=== PATIENT | female | born 1975 | race Caucasian/White ===

== ENCOUNTER 2017-05-23 20:28 | Inpatient (IN) ==
[2017-05-23] MEDS ORDERED: 0.9 % Sodium Chloride 1,000 ML IVC ONE ×2 (20:36→21:54)
[2017-05-23] MEDS ORDERED: 0.9 % Sodium Chloride 1,000 ML ONE (20:38)
[2017-05-23 22:44] LABS: Basophils % 0.2 %; Eosinophils # 0.1 K/mcL (0.0-0.6); Hematocrit 38.3 % (35.3-44.9); Hemoglobin 12.5 g/dL (11.5-15.4); Immature Granulocytes % 0.3 % (0-4); Lymphocytes # 2.1 K/mcL (0.6-4.6); Lymphocytes % 22.5 %; Mean Corpuscular HGB Conc 32.6 g/dL (31.6-35.5); Mean Corpuscular Hemoglobin 28.9 pg (28.0-33.3); Mean Corpuscular Volume 88.5 fL (83.0-100.0); Mean Platelet Volume 9.5 fL (9.4-12.4); Monocytes # 0.9 K/mcL (0.0-1.3); Monocytes % 9.5 %; Neutrophils # 6.1 K/mcL (1.6-8.9); Platelet Count 221 K/mcL (140-400); Red Blood Count 4.33 M/mcL (3.82-4.97); Red Cell Distribution Width 12.6 % (11.5-14.5); Segmented Neutrophils % 66.5 %
[2017-05-23 23:00] LABS: Alanine Aminotransferase 45 Units/L (0-55); Albumin 3.5 g/dL (3.5-5.0); Albumin/Globulin Ratio 0.9 (1.1-2.2); Alkaline Phosphatase 76 Units/L (38-126); Aspartate Amino Transferase 61 Units/L (5-34); BUN/Creatinine Ratio 9 (6-26); Bilirubin,Direct 0.3 mg/dL (0.0-0.5); Bilirubin,Indirect 0.2 mg/dL (0.0-1.2); Bilirubin,Total 0.5 mg/dL (0.2-1.2); Blood Urea Nitrogen 7 mg/dL (7-20); Carbon Dioxide 28 mEq/L (19-29); Chloride 106 mEq/L (98-109); Globulin 4.1 g/dL (2.4-3.5); Glucose 88 mg/dL (70-99); Osmolality,Calculated 287 (280-300); Potassium 3.6 mEq/L (3.5-4.5); Sodium 140 mEq/L (136-145); Total Protein 7.6 g/dL (6.0-8.3); eGFR For African Americans > 60 (> 60); eGFR For Non-African Americans > 60 (> 60)
[2017-05-23 23:00] LABS: Amphetamine Screen,Urine Negative ng/mL (Cutoff=1000); Barbiturate Screen,Urine Negative ng/mL (Cutoff=200); Benzodiazepines Screen,Urine Positive ng/mL (Cutoff=200); Cannabinoid Screen,Urine Negative ng/mL (Cutoff = 50); Cocaine Screen,Urine Positive ng/mL (Cutoff= 300); Opiate Screen,Urine Negative ng/mL (Cutoff=300); Phencyclidine Screen,Urine Negative ng/mL (Cutoff=25)
[2017-05-23 23:01] LABS: Ethanol < 10 mg/dL (0-10)
[2017-05-23 23:02] LABS: Bilirubin,Urine Negative (Negative); Blood,Urine Negative (Negative); Clarity,Urine Clear (Clear); Color,Urine Yellow (Yellow); Glucose,Urine (UA) Normal (Normal); Ketones,Urine Negative (Negative); Leukocyte Esterase,Urine Negative (Negative); Nitrite,Urine Negative (Negative); Protein,Urine Negative (Neg-Trace); Specific Gravity,Urine 1.006 (1.010-1.025); Urobilinogen,Urine Normal (Normal)
--- NOTE | 2017-05-24 01:31 | Emergency Department Note ---
Overdose - [facility] Narrative Medical decision making narrative: Patient has benzodiazepine and cocaine in her symptoms which correlate with her presentation. Not improved further after administration of further Narcan. Patient observed for multiple hours in emergency department and remained stable. Heart rate improved after IV fluids. After observation for multiple hours in the emergency Department she was able to awake slightly. She was able to give a little bit more history. She states she was drug free for about a year but recently relapsed. She states she took the drugs last night and it sounds to end her life. Patient will be admitted to the hospitalist for further care and evaluation until she can be evaluated by [facility]. - Medical Records Medical records reviewed: Yes I reviewed the patient's medical records. - Lab Data Lab results reviewed: Yes I reviewed the patient's lab results. Result diagrams: 05/23/17 22:27 05/23/17 22:27 Lab Results 05/23/17 05/23/17 05/23/17 Range/Units 22:27 22:27 22:27 WBC 9.1 (4.3-11.1) K/mcL RBC 4.33 (3.82-4.97) M/mcL Hgb 12.5 (11.5-15.4) g/dL Hct 38.3 (35.3-44.9) % MCV 88.5 (83.0-100.0) fL MCH 28.9 (28.0-33.3) pg MCHC 32.6 (31.6-35.5) g/dL RDW 12.6 (11.5-14.5) % Plt Count 221 (140-400) K/mcL MPV 9.5 (9.4-12.4) fL Immature Gran % 0.3 (0-4) % Seg Neutrophils % 66.5 % Lymphocytes % 22.5 % Monocytes % 9.5 % Eosinophils % 1.0 % Basophils % 0.2 % Neutrophils # 6.1 (1.6-8.9) K/mcL Lymphocytes # 2.1 (0.6-4.6) K/mcL Monocytes # 0.9 (0.0-1.3) K/mcL Eosinophils # 0.1 (0.0-0.6) K/mcL Basophils # 0.0 (0.0-0.2) K/mcL Sodium 140 (136-145) mEq/L Potassium 3.6 (3.5-4.5) mEq/L Chloride 106 (98-109) mEq/L Carbon Dioxide 28 (19-29) mEq/L BUN 7 (7-20) mg/dL Creatinine 0.76 (0.57-1.11) mg/dL Est GFR ( Amer) > 60 (> 60) Est GFR (Non-Af Amer) > 60 (> 60) BUN/Creatinine Ratio 9 (6-26) Glucose 88 (70-99) mg/dL Calculated Osmolality 287 (280-300) Calcium 9.0 (8.6-10.8) mg/dL Total Bilirubin 0.5 (0.2-1.2) mg/dL Direct Bilirubin 0.3 (0.0-0.5) mg/dL Indirect Bilirubin 0.2 (0.0-1.2) mg/dL AST 61 H (5-34) Units/L ALT 45 (0-55) Units/L Alkaline Phosphatase 76 (38-126) Units/L Troponin I 0.00 (0-0.03) ng/mL Serum Total Protein 7.6 (6.0-8.3) g/dL Albumin 3.5 (3.5-5.0) g/dL Globulin 4.1 H (2.4-3.5) g/dL Albumin/Globulin Ratio 0.9 L (1.1-2.2) Urine Color (Yellow) Urine Clarity (Clear) Urine pH (5.0-8.0) pH Units Ur Specific [place] (1.010-1.025) Urine Protein (Neg-Trace) mg/dL Urine Glucose (UA) (Normal) mg/dL Urine Ketones (Negative) mg/dL Urine Blood (Negative) Urine Nitrite (Negative) Urine Bilirubin (Negative) Urine Urobilinogen (Normal) mg/dL Ur Leukocyte Esterase (Negative) Ur Culture Indicated? (NO) Urine Opiates Screen (Kgffru=815) ng/mL Ur Barbiturates Screen (Jfagzj=577) ng/mL Ur Phencyclidine Scrn (Cutoff=25) ng/mL Ur Amphetamines Screen (Mhiwja=1497) ng/mL U Benzodiazepines Scrn (Nfiegw=948) ng/mL Urine Cocaine Screen (Cutoff= 300) ng/mL U Marijuana (THC) Screen (Cutoff = 50) ng/mL Ethyl Alcohol < 10 (0-10) mg/dL 05/23/17 05/23/17 Range/Units 22:45 22:45 WBC (4.3-11.1) K/mcL RBC (3.82-4.97) M/mcL Hgb (11.5-15.4) g/dL Hct (35.3-44.9) % MCV (83.0-100.0) fL MCH (28.0-33.3) pg MCHC (31.6-35.5) g/dL RDW (11.5-14.5) % Plt Count (140-400) K/mcL MPV (9.4-12.4) fL Immature Gran % (0-4) % Seg Neutrophils % % Lymphocytes % % Monocytes % % Eosinophils % % Basophils % % Neutrophils # (1.6-8.9) K/mcL Lymphocytes # (0.6-4.6) K/mcL Monocytes # (0.0-1.3) K/mcL Eosinophils # (0.0-0.6) K/mcL Basophils # (0.0-0.2) K/mcL Sodium (136-145) mEq/L Potassium (3.5-4.5) mEq/L Chloride (98-109) mEq/L Carbon Dioxide (19-29) mEq/L BUN (7-20) mg/dL Creatinine (0.57-1.11) mg/dL Est GFR ( Amer) (> 60) Est GFR (Non-Af Amer) (> 60) BUN/Creatinine Ratio (6-26) Glucose (70-99) mg/dL Calculated Osmolality (280-300) Calcium (8.6-10.8) mg/dL Total Bilirubin (0.2-1.2) mg/dL Direct Bilirubin (0.0-0.5) mg/dL Indirect Bilirubin (0.0-1.2) mg/dL AST (5-34) Units/L ALT (0-55) Units/L Alkaline Phosphatase (38-126) Units/L Troponin I (0-0.03) ng/mL Serum Total Protein (6.0-8.3) g/dL Albumin (3.5-5.0) g/dL Globulin (2.4-3.5) g/dL Albumin/Globulin Ratio (1.1-2.2) Urine Color Yellow (Yellow) Urine Clarity Clear (Clear) Urine pH 6.0 (5.0-8.0) pH Units Ur Specific [place] 1.006 L (1.010-1.025) Urine Protein Negative (Neg-Trace) mg/dL Urine Glucose (UA) Normal (Normal) mg/dL Urine Ketones Negative (Negative) mg/dL Urine Blood Negative (Negative) Urine Nitrite Negative (Negative) Urine Bilirubin Negative (Negative) Urine Urobilinogen Normal (Normal) mg/dL Ur Leukocyte Esterase Negative (Negative) Ur Culture Indicated? NO (NO) Urine Opiates Screen Negative (Yievsr=221) ng/mL Ur Barbiturates Screen Negative (Npblfs=909) ng/mL Ur Phencyclidine Scrn Negative (Cutoff=25) ng/mL Ur Amphetamines Screen Negative (Xlasas=5921) ng/mL U Benzodiazepines Scrn Positive H (Vqxdyi=773) ng/mL Urine Cocaine Screen Positive H (Cutoff= 300) ng/mL U Marijuana (THC) Screen Negative (Cutoff = 50) ng/mL Ethyl Alcohol (0-10) mg/dL - Radiology Data Radiology results reviewed: Yes I reviewed the patient's radiology results. - EKG Data EKG attestation: Yes I reviewed and interpreted this EKG. EKG results narrative: ECG - interpreted by ED physician. Rate 101 sinus tachycardia, no STEMI, [place], QT intervals, and QRS within normal limits Overdose HPI - General Chief Complaint: ED Overdose Stated Complaint: OD Time Seen by Provider: 05/23/17 20:35 Source: patient, EMS Limitations: no limitations Nursing Notes Reviewed: Yes Vital Signs Reviewed: Yes - History of Present Illness HPI Narrative: History source: Patient is unable to provide information for this note. Info was gathered from the patient, hospital staff, the patient's chart. History limitations: Patient condition Medications: As per nurses note 42-year-old female brought in by EMS for suspected overdose. They state that she was found unconscious lying on the street in [facility]. Bystanders called EMS. Patient states she used heroin today, she improved mildly after administration of Narcan. She is unable to give a full history regarding her symptoms. Patient is tachycardic in the emergency department. She is missing multiple left upper teeth however these do not look acutely fractured as they are not bleeding. - Related Data Previous Rx's Medication Instructions Recorded Ibuprofen [Motrin] 600 mg PO Q6HR PRN #40 tablet 05/20/16 Allergies Allergy/AdvReac Type Severity Reaction Status Date / Time No Known Allergies Allergy Verified 02/11/17 00:29 Limitations: ROS unobtainable due to patients medical condition Past Medical History - Past Medical History Attestation: Yes The following information was validated with the patient. 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 Bowel sounds present Neuro: Unable to perform a full neurologic evaluation however patient wakes to painful stimuli, is able to answer yes and no questions and opens eyes to painful stimuli. Patient is moving all extremities. - General Limitations: no limitations General appearance: alert, in no apparent distress Course Vital Signs Temperature 98.3 F 05/23/17 20:31 Pulse Rate 106 05/23/17 20:31 Respiratory Rate 18 05/23/17 20:31 Blood Pressure 124/91 05/23/17 20:31 O2 Sat by Pulse Oximetry 98 05/23/17 20:31 Temperature 98.4 F 05/24/17 07:10 Pulse Rate 69 05/24/17 07:10 Respiratory Rate 14 05/24/17 07:10 Blood Pressure 98/60 05/24/17 07:10 O2 Sat by Pulse Oximetry 98 05/24/17 07:10 Oxygen Delivery Oxygen Delivery Room Air Disposition Clinical Impression: Suicide attempt by multiple drug overdose Multiple drug overdose Qualifiers: Encounter type: initial encounter Injury intent: intentional self-harm Qualified Code(s): T50.902A - Poisoning by unspecified drugs, medicaments and biological substances, intentional self-harm, initial encounter Disposition: Admitted As Inpatient Condition: Fair
--- NOTE | 2017-05-24 05:26 | Internal Med History&Physical ---
Date of Encounter: 05/24/17 Time of Encounter: 05:22 Assessment and Plan (1) Suicidal ideation Current visit: Yes Status: Acute She admits to suicidal ideation. She will need evaluation by psychiatrist to determine if she would benefit from inpatient treatment. Currently her mental status does not allow psychiatric evaluation and therefore we will admit her to the medical service and monitor mental status closely. We will provide one-to- one continuous safety observation. (2) Polysubstance abuse Current visit: Yes Status: Acute Social work consult (3) Tobacco abuse Current visit: No Status: Acute Nicotine replacement therapy. (4) Multiple drug overdose Current visit: Yes Status: Acute Avoid sedatives. Close mental status monitoring. Aspiration precautions. Qualifiers: Encounter type: initial encounter Injury intent: intentional self-harm Qualified Code(s): T50.902A - Poisoning by unspecified drugs, medicaments and biological substances, intentional self-harm, initial encounter Internal Medicine - H&P: HPI Chief complaint: Drug overdose Admitted From: Emergency Dept Plans for Post Hospital Care: Transfer Psych Facility History of present illness: Ms. Zimmer is a 42 year old female with no significant past medical history who was brought to the hospital due to altered mental status and drug overdose. The patient is somnolent and lethargic but arousable she has brief moments of coherence but provides very limited history. In part because of poor recollection of the events preceding her hospital presentation. History was obtained from the emergency department physician. Patient was brought by EMS. In the field she was found to be apneic and profoundly altered. She was given 4 mg of Narcan with reported improvement in her breathing. Upon arrival in the ED she was still lethargic but maintaining her airway and respiratory function. She was given 4 mg of Narcan however there was no significant improvement in her mental status. She was monitored for 9 hours in the ED and her mental status improved slightly. She was arousable and admitted to overdosing on drugs with the intention to end her life. She currently admits to me that she attempted to hurt herself. Review of systems past medical history family history and social history could not be obtained due to profound alteration in mental status. Past Med Surg Social Fam HX - Past Medical History Medical history: no medical history, hepatitis Psychiatric history: anxiety, PTSD - Past Surgical History Surgical History: no surgical history - Social History Smoking Status: Current every day smoker Smokeless Tobacco Status: No Alcohol use: none Drug use: cocaine, opiates, IV Drug Use, other Internal Medicine - H&P: Meds Ibuprofen [Motrin] 600 mg PO Q6HR PRN #40 tablet 05/20/16 [Rx] Allergies No Known Allergies Allergy (Verified 02/11/17 00:29) All Systems PM: A 10-system review of systems was performed and is negative for pertinent findings except as documented above in the HPI. - Constitutional Vitals: Temp Pulse Resp BP Pulse Ox 98.3 F 95 14 96/58 98 05/23/17 20:31 05/24/17 03:18 05/24/17 03:18 05/24/17 03:18 05/24/17 03:18 Exam: Lethargic, arousable, answers simple questions. - Eye Eye exam: Present: PERRL, conjuntiva pink, sclera anicteric Pupils: Present: PERRL - Respiratory Respiratory exam: Present: CTAB. Absent: accessory muscle use, rales, rhonchi, wheezes - Cardiovascular Cardiovascular exam: Present: RRR, +S1, +S2. Absent: diastolic murmur, gallop, rubs, systolic murmur - GI/Abdominal GI/Abdominal exam: Present: normal bowel sounds, soft, no peritoneal signs. Absent: distended, tenderness - Extremities Exam Extremities exam: Present: warm, radial pulses palpable and symetrical. Absent : calf tenderness, cyanotic, pedal edema - Skin Skin exam: Present: dry, intact Internal Med - H&P Results - Labs CBC & Chem 7: 05/23/17 22:27 05/23/17 22:27
[2017-05-24] MEDS ORDERED: Acetaminophen 325 MG TABLET PO PRN (05:31)
[2017-05-24] MEDS ORDERED: Naloxone 0.4 MG/ML INJ IVP PRN (05:31)
--- NOTE | 2017-05-24 09:38 | Consult Note ---
Date of Encounter: 05/24/17 Time of Encounter: 08:55 Assessment & Recommendation (1) Suicidal overdose Current visit: Yes Status: Acute Qualifiers: Encounter type: initial encounter Qualified Code(s): T50.902A - Poisoning by unspecified drugs, medicaments and biological substances, intentional self- harm, initial encounter (2) Bipolar 1 disorder, depressed Current visit: Yes Status: Acute (3) PTSD (post-traumatic stress disorder) Current visit: Yes Status: Acute (4) Drug abuse and dependence Current visit: Yes Status: Acute History of Present Illness Requesting Physician: Inés Christianson Reason for consult: suicidal overdose History of present illness: Ms. Zimmer is a 42 year old female consulted today at medical floor as patient Overdosed on drugs and benzo. she has history of Bipolar, PTSD and subs use. today she was able to give history but is poor historian and is lethargic and took long pause to answer . 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 she is at present significantly depressed, and does not want to live. denies psychosis or manic s/s at present. She has past h/o suicidal attempt for which she was in coma, and h/o multiple suicidal ideation , h/o cutting behaviours when teenage . she has been in rehab. in past and in treatment for Bipolar and PTSD for 6 years , once her psychiatrist moved , she is in no treatment for 5 years now, has been using drugs. plan continue 1:1 start escitalopram 10 mg am. start depakote 250 mg bid once medically stable , transfer to inpatient psych. CC: Inés Christianson Past Med Surg Social Fam HX - Past Medical History Medical history: no medical history, hepatitis - Past Psychiatric History Psychiatric history: Reports: bipolar, PTSD, prior suicide attempt, previous psychiatric hospitalization Family psychiatric history: Yes Family History of Suicide: Completed (her uncle shot himself.) - Past Surgical History Surgical History: no surgical history - Social History Smoking Status: Current every day smoker Smokeless Tobacco Status: No Alcohol use: none Drug use: cocaine, opiates, IV Drug Use, other Medications & Allergies Ibuprofen [Motrin] 600 mg PO Q6HR PRN #40 tablet 05/20/16 [Rx] Allergies No Known Allergies Allergy (Verified 02/11/17 00:29) Review of Systems Psychiatric: Reports: anxiety, suicidal ideation, difficulty concentrating, hopelessness, mood swings Mental Status Exam Level of alertness: Other (lethargic, ) Patient appearance: Unkempt Behavior: cooperative, withdrawn Psychomotor activity: Slowed Eye contact: No Eye Contact Mood description: Depressed Affect description: congruent with mood, dysphoric Speech pattern: Slowed, Delayed Speech volume: Soft/Quiet Thought process: Slowed Thinking Thought content: Yes Suicidal ideation, Yes Preoccupation Attention span: Unable to Sustain Attention Memory description: Recent Impaired Patient reliability: Questionable Historian Intelligence estimate: Average Judgment: Poor Insight: Minimal Results - Vital Signs Vital signs: Temp Pulse Resp BP Pulse Ox 98.4 F 69 14 98/60 98 05/24/17 07:10 05/24/17 07:10 05/24/17 07:10 05/24/17 07:10 05/24/17 07:10 - Labs Labs: Laboratory Last Values WBC 9.1 K/mcL (4.3-11.1) 05/23/17 22: RBC 4.33 M/mcL (3.82-4.97) 05/23/17 22:27 Hgb 12.5 g/dL (11.5-15.4) 05/23/17 22: Hct 38.3 % (35.3-44.9) 05/23/17 22: MCV 88.5 fL (83.0-100.0) 05/23/17 22: MCH 28.9 pg (28.0-33.3) 05/23/17 22: MCHC 32.6 g/dL (31.6-35.5) 05/23/17 22: RDW 12.6 % (11.5-14.5) 05/23/17 22: Plt Count 221 K/mcL (140-400) 05/23/17 22: MPV 9.5 fL (9.4-12.4) 05/23/17 22:27 Immature Gran % 0.3 % (0-4) 05/23/17 22: Seg Neutrophils % 66.5 % 05/23/17 22: Lymphocytes % 22.5 % 05/23/17 22:27 Monocytes % 9.5 % 05/23/17 22:27 Eosinophils % 1.0 % 05/23/17 22: Basophils % 0.2 % 05/23/17 22: Neutrophils # 6.1 K/mcL (1.6-8.9) 05/23/17 22: Lymphocytes # 2.1 K/mcL (0.6-4.6) 05/23/17 22: Monocytes # 0.9 K/mcL (0.0-1.3) 05/23/17 22: Eosinophils # 0.1 K/mcL (0.0-0.6) 05/23/17 22: Basophils # 0.0 K/mcL (0.0-0.2) 05/23/17 22: Sodium 140 mEq/L (136-145) 05/23/17 22: Potassium 3.6 mEq/L (3.5-4.5) 05/23/17 22: Chloride 106 mEq/L (98-109) 05/23/17 22: Carbon Dioxide 28 mEq/L (19-29) 05/23/17 22:27 BUN 7 mg/dL (7-20) 05/23/17 22: Creatinine 0.76 mg/dL (0.57-1.11) 05/23/17 22: Est GFR ( Amer) > 60 (> 60) 05/23/17 22: Est GFR (Non-Af Amer) > 60 (> 60) 05/23/17 22:27 BUN/Creatinine Ratio 9 (6-26) 05/23/17 22: Glucose 88 mg/dL (70-99) 05/23/17 22: Calculated Osmolality 287 (280-300) 05/23/17 22: Calcium 9.0 mg/dL (8.6-10.8) 05/23/17 22: Total Bilirubin 0.5 mg/dL (0.2-1.2) 05/23/17 22: Direct Bilirubin 0.3 mg/dL (0.0-0.5) 05/23/17 22: Indirect Bilirubin 0.2 mg/dL (0.0-1.2) 05/23/17 22: AST 61 Units/L (5-34) H 05/23/17 22: ALT 45 Units/L (0-55) 05/23/17 22: Alkaline Phosphatase 76 Units/L (38-126) 05/23/17 22: Troponin I 0.00 ng/mL (0-0.03) 05/23/17 22: Serum Total Protein 7.6 g/dL (6.0-8.3) 05/23/17 22: Albumin 3.5 g/dL (3.5-5.0) 05/23/17 22: Globulin 4.1 g/dL (2.4-3.5) H 05/23/17 22: Albumin/Globulin Ratio 0.9 (1.1-2.2) L 05/23/17 22:27 Urine Color Yellow (Yellow) 05/23/17 22:45 Urine Clarity Clear (Clear) 05/23/17 22:45 Urine pH 6.0 pH Units (5.0-8.0) 05/23/17 22:45 Ur Specific [place] 1.006 (1.010-1.025) L 05/23/17 22:45 Urine Protein Negative mg/dL (Neg-Trace) 05/23/17 22:45 Urine Glucose (UA) Normal mg/dL (Normal) 05/23/17 22:45 Urine Ketones Negative mg/dL (Negative) 05/23/17 22:45 Urine Blood Negative (Negative) 05/23/17 22:45 Urine Nitrite Negative (Negative) 05/23/17 22:45 Urine Bilirubin Negative (Negative) 05/23/17 22:45 Urine Urobilinogen Normal mg/dL (Normal) 05/23/17 22:45 Ur Leukocyte Esterase Negative (Negative) 05/23/17 22:45 Ur Culture Indicated? NO (NO) 05/23/17 22:45 Urine Opiates Screen Negative ng/mL (Rttaxa=665) 05/23/17 22:45 Ur Barbiturates Screen Negative ng/mL (Gkjlzh=487) 05/23/17 22:45 Ur Phencyclidine Scrn Negative ng/mL (Cutoff=25) 05/23/17 22:45 Ur Amphetamines Screen Negative ng/mL (Hnaeke=0247) 05/23/17 22:45 U Benzodiazepines Scrn Positive ng/mL (Kclmck=707) H 05/23/17 22:45 Urine Cocaine Screen Positive ng/mL (Cutoff= 300) H 05/23/17 22:45 U Marijuana (THC) Screen Negative ng/mL (Cutoff = 50) 05/23/17 22:45 Ethyl Alcohol < 10 mg/dL (0-10) 05/23/17 22:27 Consult Discharge Plan - Plan Additional Instructions: patient needs psychiatric inpatient , once medically cleared. Referrals: NO,PCP [Primary Care Provider] -
[2017-05-24] MEDS: Nicotine 14 MG PATCH.TD24 TD SCH (09:47)
[2017-05-24] MEDS: 0.9 % Sodium Chloride 1,000 ML IVC SCH ×2 (09:47→19:38)
--- NOTE | 2017-05-24 13:41 | Internal Med Progress Note ---
Date of Encounter: 05/24/17 Time of Encounter: 09:00 - Assessment and plan (1) DVT prophylaxis Current Visit: Yes Status: Acute Assessment and plan: Heparin subcutaneously (2) Multiple drug overdose Current Visit: Yes Status: Acute Assessment and plan: We will continue to closely monitor patient. Her mental status has improved. - Continue cardiac monitoring. - Follow up her renal and liver function. - Plan to discharge patient to psych unit in a.m. tomorrow if condition continues stable. Qualifiers: Encounter type: initial encounter Injury intent: intentional self-harm Qualified Code(s): T50.902A - Poisoning by unspecified drugs, medicaments and biological substances, intentional self-harm, initial encounter (3) Suicidal ideation Current Visit: Yes Status: Acute Assessment and plan: Psychiatry consult appreciated. Treat patient with underlying bipolar and PTSD. Medication ordered per psych recommendation (4) Suicide attempt by multiple drug overdose Current Visit: Yes Status: Acute Assessment and plan: Treatment as above Qualifiers: Encounter type: initial encounter Qualified Code(s): T50.902A - Poisoning by unspecified drugs, medicaments and biological substances, intentional self- harm, initial encounter - Time Spent With Patient 25 - 35 minutes - Subjective Interval history: Patient is a 42-year-old female admitted for suicidal idea and attempt with heroin and xanax overdose. Patient was seen and examined. She is awake alert Right now. Oriented 3. Vitals are stable. Renal function and liver function generally within normal limits, except elevated AST, which seems chronic because she has AST elevation in her old chart. Psychiatry consult appreciated, medication adjusted per psych recommendation. - Constitutional Vitals: Temp Pulse Resp BP Pulse Ox 98.3 F 74 15 109/74 98 05/24/17 11:21 05/24/17 11:21 05/24/17 11:21 05/24/17 11:21 05/24/17 11:21 General appearance: Present: A&O X 3, no acute distress, answers questions appropriately - Head Head exam: Present: atraumatic, normocephalic - Eye Eye exam: Present: PERRL, conjuntiva pink, sclera anicteric Pupils: Present: PERRL - Neck Neck exam general surgery: Present: supple, trachea midline. Absent: lymphadenopathy - Respiratory Respiratory exam: Present: CTAB. Absent: accessory muscle use, rales, rhonchi, wheezes - Cardiovascular Cardiovascular exam: Present: RRR, +S1, +S2. Absent: diastolic murmur, gallop, rubs, systolic murmur - GI/Abdominal GI/Abdominal exam: Present: normal bowel sounds, soft, no peritoneal signs. Absent: distended, tenderness - Extremities Exam Extremities exam: Present: warm, radial pulses palpable and symetrical. Absent : calf tenderness, cyanotic, pedal edema - Neurological Exam Neurological exam: Present: CN II-XII intact, oriented X3, no focal deficits. Absent: pronater drift, facial droop, speech deficit - Skin Skin exam: Present: dry, intact Internal Medicine: Result - Labs CBC & Chem 7: 05/23/17 22:27 05/23/17 22:27 Consult Discharge Plan - Plan Additional Instructions: patient needs psychiatric inpatient , once medically cleared. Referrals: NO,PCP [Primary Care Provider] -
--- NOTE | 2017-05-24 14:26 | Electrocardiograph Report ---
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
[2017-05-24] MEDS: Divalproex (12 HR) 250 MG TABLET PO SCH ×2 (15:10→20:49)
[2017-05-24] MEDS: *HR* Heparin 5,000 UNIT/ML VIAL SQ SCH (17:11)
[2017-05-25] MEDS: 0.9 % Sodium Chloride 1,000 ML IVC SCH (05:31)
[2017-05-25] MEDS: *HR* Heparin 5,000 UNIT/ML VIAL SQ SCH (05:32)
[2017-05-25 05:38] LABS: Basophils % 0.4 %; Eosinophils # 0.4 K/mcL (0.0-0.6); Eosinophils % 7.3 %; Hematocrit 33.9 % (35.3-44.9); Hemoglobin 10.9 g/dL (11.5-15.4); Immature Granulocytes % 0.2 % (0-4); Immature Platelets 2.2 % (1.1-6.1); Lymphocytes # 2.4 K/mcL (0.6-4.6); Lymphocytes % 48.4 %; Mean Corpuscular HGB Conc 32.2 g/dL (31.6-35.5); Mean Corpuscular Hemoglobin 28.5 pg (28.0-33.3); Mean Corpuscular Volume 88.5 fL (83.0-100.0); Mean Platelet Volume 10.2 fL (9.4-12.4); Monocytes # 0.4 K/mcL (0.0-1.3); Monocytes % 7.1 %; Neutrophils # 1.8 K/mcL (1.6-8.9); Platelet Count 204 K/mcL (140-400); Red Blood Count 3.83 M/mcL (3.82-4.97); Red Cell Distribution Width 12.3 % (11.5-14.5); Segmented Neutrophils % 36.6 %
[2017-05-25 05:43] LABS: Alanine Aminotransferase 34 Units/L (0-55); Albumin/Globulin Ratio 0.8 (1.1-2.2); Alkaline Phosphatase 67 Units/L (38-126); Aspartate Amino Transferase 51 Units/L (5-34); BUN/Creatinine Ratio 13 (6-26); Blood Urea Nitrogen 9 mg/dL (7-20); Calcium 8.2 mg/dL (8.6-10.8); Carbon Dioxide 25 mEq/L (19-29); Chloride 112 mEq/L (98-109); Globulin 3.3 g/dL (2.4-3.5); Glucose 79 mg/dL (70-99); Osmolality,Calculated 290 (280-300); Potassium 3.8 mEq/L (3.5-4.5); Sodium 141 mEq/L (136-145); eGFR For African Americans > 60 (> 60); eGFR For Non-African Americans > 60 (> 60)
[2017-05-25 05:44] LABS: Albumin 2.5 g/dL (3.5-5.0); Bilirubin,Total < 0.3 mg/dL (0.2-1.2); Total Protein 5.8 g/dL (6.0-8.3)
[2017-05-25 06:03] LABS: Platelet Estimate Normal (Normal)
[2017-05-25 07:22] VITALS: BP 116/80
[2017-05-25] MEDS: Divalproex (12 HR) 250 MG TABLET PO SCH (08:12)
[2017-05-25] MEDS: Nicotine 14 MG PATCH.TD24 TD SCH (08:12)
--- NOTE | 2017-05-25 13:03 | Discharge Summary ---
Date of Encounter: 05/25/17 Time of Encounter: 11:00 - Discharge Diagnosis (1) DVT prophylaxis Priority: Secondary Status: Acute (2) Multiple drug overdose Priority: Primary Status: Acute Qualifiers: Encounter type: initial encounter Injury intent: intentional self-harm Qualified Code(s): T50.902A - Poisoning by unspecified drugs, medicaments and biological substances, intentional self-harm, initial encounter (3) Suicidal ideation Priority: Primary Status: Acute (4) Suicide attempt by multiple drug overdose Priority: Primary Status: Acute Qualifiers: Encounter type: initial encounter Qualified Code(s): T50.902A - Poisoning by unspecified drugs, medicaments and biological substances, intentional self- harm, initial encounter - Discharge Medications Home Medications: Ibuprofen [Motrin] 600 mg PO Q6HR PRN #40 tablet 05/20/16 [Rx] Divalproex (12 HR) [Depakote (12 HR)] 250 mg PO BID 05/25/17 [Rx] Escitalopram [Lexapro] 10 mg PO DAILY tab 05/25/17 [Rx] Nicotine Patch [Nicoderm] 14 mg TD DAILY 05/25/17 [Rx] Allergies/Adverse Reactions: Allergies No Known Allergies Allergy (Verified 02/11/17 00:29) Date of admission: 05/24/17 05:31 Primary care physician: PCP NONE Consults: 05/24/17 05:35 Consult to Psychiatry [CONS] Routine Consulting Provider: Psychiatry Deana Reason for Consult: Suicidal ideation Call Completed: No Discharging clinician: Evelia Rios Anticipated date of discharge: 05/25/17 - Patient Status Disposition: Transfer Psychiatric Hosp Condition: Fair Functional capacity at discharge: independent ambulation Overall status at discharge: patient is progressing back to baseline - Discharge Instructions Follow Up With: NONE,PCP [Primary Care Provider] - Additional Instructions: patient needs psychiatric inpatient , once medically cleared. - Diet and Activity Activity: increase activity as tolerated Diet: regular diet Interval History: HPI: Ms. Zimmer is a 42 year old female with no significant past medical history who was brought to the hospital due to altered mental status and drug overdose. The patient is somnolent and lethargic but arousable she has brief moments of coherence but provides very limited history. In part because of poor recollection of the events preceding her hospital presentation. History was obtained from the emergency department physician. Patient was brought by EMS. In the field she was found to be apneic and profoundly altered. She was given 4 mg of Narcan with reported improvement in her breathing. Upon arrival in the ED she was still lethargic but maintaining her airway and respiratory function. She was given 4 mg of Narcan however there was no significant improvement in her mental status. She was monitored for 9 hours in the ED and her mental status improved slightly. She was arousable and admitted to overdosing on drugs with the intention to end her life. She currently admits to me that she attempted to hurt herself. Hospital course: Ms. Zimmer is a 42 year old female admitted for drug overdose and suicidal idea/ attempt. Patient was placed on cardiac monitoring, IV fluid, psychiatry consult was called. After treatment, patient is awake alert, oriented 3. Liver and kidney function within normal limits, EKG unremarkable. Patient has been medically monitored over 24 hours. Medically stable to transfer patient to psych unit for further management. I saw and examined the patient today. She is awake alert, oriented 3. Denies nausea, vomiting, denies any pain or discomfort. Vital signs stable. Patient is stable to transfer to psych unit for further treatment. - Time Spent with Patient Total time spent providing and/or coordinating discharge services: 25 minutes Less than 30 minutes - Constitutional Vitals: Temp Pulse Resp BP Pulse Ox 98.4 F 65 16 116/80 97 05/25/17 07:20 05/25/17 07:20 05/25/17 07:20 05/25/17 07:20 05/25/17 07:20 General appearance: Present: A&O X 3, no acute distress, answers questions appropriately - Head Head exam: Present: atraumatic, normocephalic - Eye Eye exam: Present: PERRL, conjuntiva pink, sclera anicteric Pupils: Present: PERRL - Neck Neck exam general surgery: Present: supple, trachea midline. Absent: lymphadenopathy - Respiratory Respiratory exam: Present: CTAB. Absent: accessory muscle use, rales, rhonchi, wheezes - Cardiovascular Cardiovascular exam: Present: RRR, +S1, +S2. Absent: diastolic murmur, gallop, rubs, systolic murmur - GI/Abdominal GI/Abdominal exam: Present: normal bowel sounds, soft, no peritoneal signs. Absent: distended, tenderness - Extremities Exam Extremities exam: Present: warm, radial pulses palpable and symetrical. Absent : calf tenderness, cyanotic, pedal edema - Neurological Exam Neurological exam: Present: CN II-XII intact, oriented X3, no focal deficits. Absent: pronater drift, facial droop, speech deficit - Skin Skin exam: Present: dry, intact
== END 2017-05-25 17:11 | DRG 812 ==
LOC: 3BNU 20:28 → EMEROO 20:28 → 3BNU 05-24 06:59
PROVIDERS: ADMIT Internal Medicine; ATTEND Nurse Practitioner Family

== ENCOUNTER 2017-05-25 17:03 | Inpatient (IN) ==
[2017-05-25] MEDS ORDERED: MOM Conc 10 ML UD.LIQ PO PRN (17:53)
[2017-05-25] MEDS ORDERED: Haloperidol Lactate 5 MG/ML VIAL IM PRN (17:53)
[2017-05-25] MEDS ORDERED: *HR* LORazepam 2 MG/ML VIAL IM PRN (17:53)
[2017-05-25] MEDS ORDERED: hydrOXYzine pamoate 25 MG CAPSULE PO PRN (17:53)
[2017-05-25] MEDS ORDERED: *HR* LORazepam 1 MG TABLET PO PRN (17:53)
[2017-05-25] MEDS ORDERED: Mag Hydrox/Al Hydrox/Simeth 30 ML UDC PO PRN (17:53)
[2017-05-25] MEDS ORDERED: Ibuprofen 400 MG TABLET PO PRN (17:53)
[2017-05-25] MEDS: traZODone 50 MG TABLET PO PRN (20:39)
[2017-05-25] MEDS: Divalproex (12 HR) 250 MG TABLET PO SCH (20:39)
[2017-05-26] MEDS: Nicotine 14 MG PATCH.TD24 TD SCH (09:04)
[2017-05-26] MEDS: Divalproex (12 HR) 250 MG TABLET PO SCH ×2 (09:05→20:38)
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
[2017-05-27] MEDS: Nicotine 14 MG PATCH.TD24 TD SCH (09:02)
[2017-05-27] MEDS: Divalproex (12 HR) 250 MG TABLET PO SCH (09:02)
--- NOTE | 2017-05-27 11:06 | Psychiatry Progress Note ---
Date of Encounter: 05/27/17 Time of Encounter: 10:56 Subjective Interval history: Patient seen today , case discussed with staff and patient mostly isolative in her room. at present stating i am ok , i am tired , looking down , no eye contact , teary eyes, unkempt , hair not made. she is still significantly depressed, talked about her daughter who is going to have baby in a month , she has not told her she is admitted , doesnot want to burden her, she has not told anyone in her family. only her BF came to visit her , states i have been with him for 17 years , its lifetime, she is admitting to having craving of opiates. she at present denies suicidal ideation but is very depressed, isolative, withdrawn and hopeless. will increase escitalopram to 20 mg , plan d/w her. add neurontin 100 mg tid for her anxiety, subatance use Review of Systems Psychiatric: Reports: depression, anxiety, change in appetite, anhedonia, hopelessness, mood swings Objective: Exam Patient orientation: Yes Person, Yes Place Level of alertness: Alert Patient appearance: Unkempt Behavior: tearful, withdrawn Eye contact: Minimal Contact Mood description: Depressed Affect description: congruent with mood, tearful Speech pattern: Slowed Speech volume: Soft/Quiet Thought process: Slowed Thinking Thought content: Yes Guilt Judgment: Limited Insight: Minimal Results - Vital Signs Vital Signs: Temp Pulse Resp BP 98.3 F 66 16 111/85 05/26/17 20:19 05/26/17 20:19 05/26/17 20:19 05/26/17 20:19 Assessment and Plan (1) Suicidal overdose Current visit: No Status: Acute Risks, benefits, side effects, alternatives discussed w/pt: Yes Patient agreeable to treatment: Yes Qualifiers: Encounter type: subsequent encounter Qualified Code(s): T50.902D - Poisoning by unspecified drugs, medicaments and biological substances, intentional self-harm, subsequent encounter (2) Bipolar 1 disorder, depressed Current visit: Yes Status: Acute Risks, benefits, side effects, alternatives discussed w/pt: Yes Patient agreeable to treatment: Yes (3) PTSD (post-traumatic stress disorder) Current visit: No Status: Acute Risks, benefits, side effects, alternatives discussed w/pt: Yes Patient agreeable to treatment: Yes
[2017-05-27] MEDS: Gabapentin 100 MG CAPSULE PO SCH ×2 (15:19→20:54)
[2017-05-27] MEDS: traZODone 50 MG TABLET PO PRN (20:54)
[2017-05-28] MEDS: Nicotine 14 MG PATCH.TD24 TD SCH (09:07)
[2017-05-28] MEDS: Gabapentin 100 MG CAPSULE PO SCH ×3 (09:07→20:40)
--- NOTE | 2017-05-28 14:45 | Psychiatry Progress Note ---
Date of Encounter: 05/28/17 Time of Encounter: 13:00 Subjective Interval history: Katelyn is seen today for follow-up. Previous notes reviewed. Staff reviewed patient's chart in treatment team. Patient reports that she does not feel depressed anymore. She is going back and forth on whether or not her overdose was a suicide attempt. To this provider she denies overdosing in an attempt to end her life. She does admit to chronic opiate dependence. Unsure at this time if she would like to be clean or not. Patient has been unable to provide information about a safe place to return to at discharge. She does deny suicidal ideations today. She denies depressed mood. She is interacting some with peers and staff today. Has mentioned to staff that she does not plan to follow up with outpatient mental health treatment. Review of Systems Constitutional: Denies: fever, chills, weakness, weight change Eyes: Denies: eye pain, vision change Ears, Nose, Throat: Denies: ear pain, throat pain, dental pain, hearing loss, congestion Cardiovascular: Denies: chest pain, palpitations, dyspnea on exertion Respiratory: Denies: cough, dyspnea, wheezes Gastrointestinal: Denies: abdominal pain, nausea, vomiting, diarrhea, constipation Musculoskeletal: Denies: joint swelling, joint pain Neurological: Denies: headache, weakness, numbness, memory loss Psychiatric: Reports: depression, anxiety, abnormal sleep pattern, change in appetite, difficulty concentrating, irritability, mood swings. Denies: suicidal ideation Objective: Exam Patient orientation: Yes Person, Yes Time, Yes Place Level of alertness: Alert Patient appearance: Disheveled Behavior: guarded, other (Manipulative) Psychomotor activity: Normal Eye contact: Fleeting Contact Mood description: Euthymic/stable Affect description: blunted Speech pattern: Normal rate, Normal rhythm, Normal tone Speech volume: Normal Thought process: Intact, Goal Oriented (Very focused on discharge) Thought content: No Suicidal ideation, No Homicidal ideation Perceptual disturbances: No Auditory hallucinations, No Visual hallucinations Judgment: Limited Insight: Minimal Results - Vital Signs Vital Signs: Temp Pulse Resp BP 98 F 62 18 117/71 05/28/17 09:00 05/28/17 09:00 05/28/17 09:00 05/28/17 09:00 Assessment and Plan (1) Bipolar 1 disorder, depressed Current visit: Yes Status: Acute Plan: Continue hospitalization, Close observation, Suicide Precautions per unit protocol, Encourage participation in unit milieu, Group Therapy, Monitor sleep, Monitor appetite Additional Plan: Mood improving slowly although patient does appear to be manipulating staff as to her recent suicide attempt. We will need to ensure that appropriate follow-up appointments have been made and that she has a safe place to return to. Continue to encourage participation in therapeutic milieu. Patient denies side effects of meds. Risks, benefits, side effects, alternatives discussed w/pt: Yes Patient agreeable to treatment: Yes (2) Opiate abuse, continuous Current visit: No Status: Chronic Additional Plan: Encouraged patient to discontinue opiate use. Discussed risk factors of long-term use of opiates. Risks, benefits, side effects, alternatives discussed w/pt: Yes Patient agreeable to treatment: Yes (3) PTSD (post-traumatic stress disorder) Current visit: No Status: Acute Risks, benefits, side effects, alternatives discussed w/pt: Yes Patient agreeable to treatment: Yes Consult Discharge Plan - Plan Referrals: [facility] [Outside] - 06/05/17 10:30 am (The above appointment is with Go Min CNP to establish in primary care and for [facility] assessment. Please arrive 15 minutes early for your new patient appointment, and bring the following items with you: insurance card (if you do not have insurance bring proof of income to apply for the sliding fee scale), photo ID, and any medication you take in the original bottles. If you are unable to bring these items, your appointment will be rescheduled. If you are unable to keep this appointment, 24 hour business notice of cancellation is expected. If you miss your new patient appointment, you cannot be re-scheduled in this practice for 3 months. This practice does not prescribe narcotics or see [facility] benefit recipients. ) [facility] [Outside] - 06/01/17 1:00 pm (The above appointment is with Elyssa Escalante for outpatient mental health and substance abuse counseling. You must call Gloria at [phone] by 05/30/2017 at noon to confirm you plan to attend this appointment in order for it to remain scheduled. When you come to your first appointment, you will have an orientation to the agency and you will meet with a counselor. Please bring the following with you to your first visit to the clinic: 1) proof of household income (two consecutive pay stubs, social security award letter, bank statement , statement letter from [facility], child support statement, IRS 1040 or W2 form, or a statement from the person who financially supports you stating they help provide for your basic needs), 2) proof of residency (drivers license, a piece of mail showing your address, a statement from person you live with verifying you live at their address), 3) your social security card, 4) photo ID, 5) your insurance card (if you have commercial insurance you must call to obtain a prior authorization number before you arrive to your first appointment) and 6) if you do not have insurance but have applied for Medicaid, please bring verification you have applied. This is the first available appointment. You may contact the office regularly to check for cancellations that may allow you to be seen sooner. )
[2017-05-28] MEDS: traZODone 50 MG TABLET PO PRN (20:40)
[2017-05-29] MEDS: Nicotine 14 MG PATCH.TD24 TD SCH (09:03)
[2017-05-29] MEDS: Gabapentin 100 MG CAPSULE PO SCH (09:03)
[2017-05-29 09:36] VITALS: BP 126/80
--- NOTE | 2017-05-29 10:02 | Discharge Summary ---
Date of Encounter: 05/29/17 Time of Encounter: 09:00 Diagnosis - Discharge Diagnosis (1) Bipolar 1 disorder, depressed Priority: Primary Status: Acute (2) Opiate abuse, continuous Priority: Secondary Status: Chronic (3) PTSD (post-traumatic stress disorder) Priority: Secondary Status: Acute Medications - Discharge Medications Prescriptions: Escitalopram [Lexapro] 20 mg PO DAILY #30 tab Gabapentin [Neurontin] 100 mg PO TID #90 cap Nicotine Patch [Nicoderm] 14 mg TD DAILY 05/25/17 [Rx] Escitalopram [Lexapro] 20 mg PO DAILY #30 tab 05/29/17 [Rx] Gabapentin [Neurontin] 100 mg PO TID #90 cap 05/29/17 [Rx] Allergies No Known Allergies Allergy (Verified 02/11/17 00:29) Provider Date of admission: 05/25/17 17:03 Primary care physician: PCP NONE Discharging clinician: Britney Cisneros Assessment and Plan - Patient/Caregiver Discharge Instructions Activity: resume usual activities as tolerated Diet: regular diet - Follow up Plan Follow up with: [facility] [[facility]] - 06/05/17 10:30 am (The above appointment is with Go Min CNP to establish in primary care and for [facility] assessment. Please arrive 15 minutes early for your new patient appointment, and bring the following items with you: insurance card (if you do not have insurance bring proof of income to apply for the sliding fee scale), photo ID, and any medication you take in the original bottles. If you are unable to bring these items, your appointment will be rescheduled. If you are unable to keep this appointment, 24 hour business notice of cancellation is expected. If you miss your new patient appointment, you cannot be re-scheduled in this practice for 3 months. This practice does not prescribe narcotics or see [facility] benefit recipients. ) [facility] 1:00 pm (The above appointment is with Elyssa Escalante for outpatient mental health and substance abuse counseling. You must call Gloria at [phone] by 05/30/2017 at noon to confirm you plan to attend this appointment in order for it to remain scheduled. When you come to your first appointment, you will have an orientation to the agency and you will meet with a counselor. Please bring the following with you to your first visit to the clinic: 1) proof of household income (two consecutive pay stubs, social security award letter, bank statement , statement letter from [facility], child support statement, IRS 1040 or W2 form, or a statement from the person who financially supports you stating they help provide for your basic needs), 2) proof of residency (drivers license, a piece of mail showing your address, a statement from person you live with verifying you live at their address), 3) your social security card, 4) photo ID, 5) your insurance card (if you have commercial insurance you must call to obtain a prior authorization number before you arrive to your first appointment) and 6) if you do not have insurance but have applied for Medicaid, please bring verification you have applied. This is the first available appointment. You may contact the office regularly to check for cancellations that may allow you to be seen sooner. ) Functional capacity at discharge: independent ambulation Overall status at discharge: Stable Disposition: Home, Self-Care Hospital Course Hospital course: Ms. Zimmer is a 42 year old female with a history of bipolar disorder and opiate dependence. She presented to the hospital after overdose on opiates. She was initially admitted to the medical floor and then transferred to for psychiatric stabilization. Initially patient was stating that this was a suicide attempt and that she denied this. Patient was admitted to for psychiatric stabilization. She was incorporated into the therapeutic milieu and offer group and individual as well as recreational therapy. Patient was also offered psychoeducational materials and supportive therapy. She was placed on suicide precautions and close observation per unit protocol. Patient was on Lexapro in the past and this was restarted and increased to 20 mg. She was also offered gabapentin for withdrawal and mood symptoms. Throughout the course of hospital stay the patient's mood improved. She did not initially wants to talk to family but finally let us talk to her boyfriend. Boyfriend felt that patient was back to baseline and ready for discharge. Patient did interact some with peers and staff during her hospital stay. She denied suicidal ideation since her admission to [facility] She tolerated Lexapro and gabapentin well and denied side effects. At the time of discharge patient was willing to continue treatment until she could be seen as an outpatient. She denied thoughts of wanting to hurt herself. She is discharged in stable condition. - Time Spent with Patient Total time spent providing and/or coordinating discharge services: Less than 30 minutes Quality - Multiple Antipsychotics Patient discharged on 2 or more antipsychotic medications: No Procedures - Procedures Procedures: Medication Management, Crisis Stabilization, Supportive Therapy, Group Therapy, Psychoeducational Therapy Mental Status Exam - Mental Status Exam Patient orientation: Yes Person, Yes Time, Yes Place Level of alertness: Alert Patient appearance: Appropriate, Well Groomed Behavior: calm, cooperative Psychomotor activity: Normal Eye contact: Maintains Eye Contact Mood description: Euthymic/stable Affect description: congruent with mood, full range Speech pattern: Normal rate, Normal rhythm, Normal tone Speech Volume: Normal Thought process: Linear, Goal Oriented Thought Content: No Suicidal ideation, No Homicidal ideation, No Overt delusions Perceptual Disturbances: No Auditory hallucinations, No Visual hallucinations Judgment: Limited Insight: Partial
== END 2017-05-29 10:45 | disposition home or self-care (01) | DRG 753 ==
LOC: 1ANU 17:03
PROVIDERS: ADMIT Psychiatry & Neurology Psychiatry; ATTEND Psychiatry & Neurology Psychiatry

== ENCOUNTER 2019-04-19 15:31 | Inpatient (IN) ==
[2019-04-19] MEDS ORDERED: *HR* Nalbuphine 10 MG/ML AMPUL ONE (15:38)
--- NOTE | 2019-04-19 15:46 | Emergency Department Note ---
Disposition Clinical Impression: Precipitous delivery Disposition: Admitted As Inpatient Condition: Fair Referrals: NONE,PCP [Primary Care Provider] - Time of Disposition: 15:56 HPI - General Chief complaint: ED OB/Uterine Contractions Stated complaint: gave Time Seen by Provider: 04/19/19 15:37 Source: EMS Mode of arrival: ambulatory Limitations: no limitations Nursing Notes Reviewed: Yes Vital Signs Reviewed: Yes - History of Present Illness HPI Narrative: Concern about status. 44-year-old female brought in by EMS after precipitous delivery in the field. Patient was , stated that her due date was 05/11/2019 and had been following with Dr. Rodriguez. Patient states that she was incarcerated for the majority of the . Patient has a history of hepatitis C. Denies recent illicit drug use. Patient does abuse tobacco throughout the . Denies recent fever, chills, nausea, vomiting, diarrhea. Patient states she had acute onset of cramping and abdominal pain, states that her water broke in the EMS truck and the baby was delivered thereafter. Placenta did not deliver however. Patient is awake alert in the emergency department answer questions appropriately. GCS of 15. No recent trauma. - Related Data Previous Rx's Medication Instructions Recorded Escitalopram [Lexapro] 20 mg PO DAILY #30 tab 05/29/17 [id number]/Iron Fumarate/FA/Dss 1 each PO QDPC #30 tablet 03/13/19 [ 19 Tablet] Allergies Allergy/AdvReac Type Severity Reaction Status Date / Time No Known Allergies Allergy Verified 02/15/18 15:07 All systems ED: reviewed and negative except as stated. Review of Systems: As Per HPI PMH - Social History Smoking Status: Current every day smoker Alcohol use: Reports: none Drug use: Reports: cocaine, opiates, IV Drug Use, other Physical Exam General: Alert and in moderate discomfort Skin: Warm, dry, intact Head: Normocephalic and atraumatic Neck: Supple, trachea midline and no tenderness Cardiovascular: RRR, no murmur, normal perfusion Respiratory: CTAB, no wheezing, cough, or respiratory distress Musculoskeletal: Normal strength, no tenderness, swelling or deformity GI: Soft, tenderness to palpation suprapubic area. nondistended. : Bright red blood present around the vaginal introitus with umbilical cord protruding out which was clamped. No brisk hemorrhage noted on external exam. OB present in room and at bedside addressing OB needs Neuro: A&O to person, place, time and situation. No focal deficits noted on exam Course Vital Signs Temperature 97.6 F 04/19/19 15:33 Pulse Rate 115 04/19/19 15:33 Respiratory Rate 22 04/19/19 15:33 Blood Pressure 133/87 04/19/19 15:33 O2 Sat by Pulse Oximetry 96 04/19/19 15:33 Temperature 97.6 F 04/19/19 15:33 Pulse Rate 115 04/19/19 15:33 Respiratory Rate 22 04/19/19 15:33 Blood Pressure 133/87 04/19/19 15:33 O2 Sat by Pulse Oximetry 96 04/19/19 15:33 Oxygen Delivery Oxygen Delivery Room Air OB/Uterine Contractions - MDM Narrative Medical decision making narrative: OB alert was called after the initial EMS report, they met the patient in the emergency department and evaluated at bedside. Care was transferred to Dr. Grey and Candy Ware - Medical Records Medical records reviewed: Yes I reviewed the patient's medical records.
[2019-04-19] MEDS ORDERED: *HR* Nalbuphine 10 MG/ML AMPUL IV STA (15:47)
[2019-04-19] MEDS ORDERED: Oxytocin 20 units/ LR 1000 mL 20 UNIT/1,000 ML BAG IVC ONE (16:10)
[2019-04-19] MEDS ORDERED: Measles/Mumps/Rubella Vacc 0.5 ML VIAL SQ PRN (16:32)
[2019-04-19] MEDS ORDERED: Ibuprofen 600 MG TABLET PO PRN (16:32)
[2019-04-19] MEDS ORDERED: Oxytocin 20 units/ LR 1000 mL 20 UNIT/1,000 ML BAG IVC SCH (16:32)
[2019-04-19] MEDS ORDERED: Rho Immune Globulin 1,500 UNIT SYRINGE IM PRN (16:32)
[2019-04-19 18:37] LABS: Basophils % 0.2 %; Eosinophils % 0.2 %; Hemoglobin 10.3 g/dL (11.5-15.4); Immature Granulocytes % 1.7 % (0-4); Lymphocytes % 16.4 %; Mean Corpuscular HGB Conc 32.2 g/dL (31.6-35.5); Mean Corpuscular Hemoglobin 27.1 pg (28.0-33.3); Mean Corpuscular Volume 84.2 fL (83.0-100.0); Mean Platelet Volume 11.7 fL (9.4-12.4); Monocytes # 0.6 K/mcL (0.0-1.3); Monocytes % 4.9 %; Neutrophils # 9.2 K/mcL (1.6-8.9); Nucleated Red Blood Cells 0.2 /100 WBC (0); Platelet Count 252 K/mcL (140-400); Red Cell Distribution Width 12.3 % (11.5-14.5); Segmented Neutrophils % 76.6 %
--- NOTE | 2019-04-19 19:21 | OB/GYN History & Physical ---
Date of Encounter: 04/19/19 Time of Encounter: 19:21 Assessment and Plan (1) Vaginal delivery Current visit: Yes Status: Acute Admitted for precipitous delivery en route. (2) Precipitous delivery Current visit: Yes Status: Acute Delivered en route by EMS staff (3) Limited care Current visit: Yes Status: Acute Qualifiers: Trimester: third trimester Qualified Code(s): O09.33 - Supervision of with insufficient care, third trimester (4) GBS screening not performed Current visit: Yes Status: Acute Patient had only one visit. (5) Opiate abuse, continuous Current visit: No Status: Chronic Consult social service liaison (6) Hepatitis C Current visit: No Status: Acute Hep C level drawn on admission Qualifiers: Viral hepatitis chronicity: chronic Hepatic coma status: without hepatic coma Qualified Code(s): B18.2 - Chronic viral hepatitis C History of Present Illness Chief complaint: Delivered en route HPI: Ms. Zimmer is a 44 year old female who arrived to the ER after delivering vaginally in the squad en route to the hospital. She has been in and out of [facility] the entire for drug-related charges. Review of her record shows only one visit with multiple no-shows for visits. According to a second trimester ultrasound, she is 36 weeks 2 days today. Patient does report a history of polysubstance abuse and her last overdose was in February of this year. On arrival she admits to using Fentanyl once since she was released from [facility], approximately 1 week ago. Placenta was delivered at 1542 in the ER with minimal bleeding noted. Patient was then transferred to the L&D unit for recovery. Blood type O+ HbSAG non-reactive HIV negative T. Pall negative Rubella Immune Varicella Immune Hep C POSITIVE GC/Chlamydia negative on 02/14/19 UDS positive on 03/12/19 for amphetamines, benzodiazepines, cocaine. Gestational diabetes with 1 hr GTT of 183 with no 3-hr done. Past Med Surg Social Fam HX - Past Medical History Medical history: hepatitis Additional medical history: hepatitis A,B,C Psychiatric history: anxiety, bipolar, PTSD, prior suicide attempt, previous psychiatric hospitalization - Past Surgical History Surgical History: no surgical history - Social History Smoking Status: Current every day smoker Packs per day: 1 Smokeless Tobacco Status: No Alcohol use: none Drug use: cocaine, opiates, IV Drug Use, other Occupational status: unemployed Current living situation: Home - Independent Activity Level: Independent ambulation Recent Out of Country Travel Within the Last 8 Weeks: No Exposure or Possible Exposure to Illness During Travel: No - Family History Mother Living Status: Still Living Hx Family Cardiac Disorders: No Hx Family Respiratory Disorders: No Hx Family Cancer: No Hx Family GI Disorders: No Hx Family Genitourinary Disorders: No Hx Family Endocrine Disorder: No Hx Family Musculoskeletal Disorders: No Hx Family Neuromuscular Disorders: No Hx Family Neurologic Disorders: No Hx Family HEENT Disorders: No Hx Family Autoimmune Disorders: No Hx Family Reproductive Disorders: No Hx Family Psychosocial Disorders: No Hx Family Medical Disorders: No Obstetrical History - Pregnancies : 5 Para: 3 Term: 2 : 1 Ab's: 1 Livin Medications and Allergies No Known Home Drugs 04/19/19 [History] Allergy/AdvReac Type Severity Reaction Status Date / Time No Known Allergies Allergy Verified 04/19/19 16:12 Exam - Vital Signs Vital signs: Initial Vital Signs Temp Pulse Resp BP Pulse Ox 97.6 F 115 22 133/87 96 04/19/19 15:33 04/19/19 15:33 04/19/19 15:33 04/19/19 15:33 04/19/19 15:33 - Constitutional Constitutional: no acute distress, thin - HEENT HEENT: Normocephaly, Mucus Membranes Moist - Neck Neck exam: full ROM - Breasts Breast: bilateral: normal - Abdomen Abdomen: Present: bowel sounds normal, non tender - Extremities Extremities exam: full ROM, normal capillary refill, normal inspection - Vulva Vulva: bilateral: normal - Vagina Vagina: Present: normal moisture - Uterus Uterus exam: Present: normal size, normal contour - Anus/Rectum Anus/Rectum: Present: normal perianal skin Results Result Diagrams: 04/19/19 18:18 Abnormal lab results WBC 12.0 K/mcL (4.3-11.1) H 04/19/19 18:18 RBC 3.80 M/mcL (3.82-4.97) L 04/19/19 18:18 Hgb 10.3 g/dL (11.5-15.4) L 04/19/19 18:18 Hct 32.0 % (35.3-44.9) L 04/19/19 18:18 MCH 27.1 pg (28.0-33.3) L 04/19/19 18:18 9.2 K/mcL (1.6-8.9) H 04/19/19 18:18 Nucleated RBCs/100 WBC 0.2 /100 WBC (0) H 04/19/19 18:18 All other labs normal. - VTE Reasons for not Prescribing Prophylaxis: Treatment not Indicated - Low risk for VTE
[2019-04-19] MEDS: Acetaminophen 325 MG TABLET PO PRN (21:58)
[2019-04-20] MEDS: Acetaminophen 325 MG TABLET PO PRN ×2 (04:21→11:58)
[2019-04-20 05:11] LABS: Amphetamine Screen,Urine Negative ng/mL (Cutoff=1000); Barbiturate Screen,Urine Negative ng/mL (Cutoff=200); Benzodiazepines Screen,Urine Negative ng/mL (Cutoff=200); Cannabinoid Screen,Urine Negative ng/mL (Cutoff = 50); Cocaine Screen,Urine Negative ng/mL (Cutoff= 300); Opiate Screen,Urine Negative ng/mL (Cutoff=300); Phencyclidine Screen,Urine Negative ng/mL (Cutoff=25)
[2019-04-20 07:37] LABS: Basophils % 0.3 %; Eosinophils # 0.1 K/mcL (0.0-0.6); Eosinophils % 0.6 %; Hematocrit 35.1 % (35.3-44.9); Hemoglobin 11.4 g/dL (11.5-15.4); Lymphocytes # 2.9 K/mcL (0.6-4.6); Lymphocytes % 27.2 %; Mean Corpuscular HGB Conc 32.5 g/dL (31.6-35.5); Mean Corpuscular Hemoglobin 27.5 pg (28.0-33.3); Mean Corpuscular Volume 84.8 fL (83.0-100.0); Mean Platelet Volume 11.8 fL (9.4-12.4); Monocytes # 0.7 K/mcL (0.0-1.3); Monocytes % 6.9 %; Neutrophils # 6.8 K/mcL (1.6-8.9); Platelet Count 258 K/mcL (140-400); Red Blood Count 4.14 M/mcL (3.82-4.97); Red Cell Distribution Width 12.3 % (11.5-14.5); White Blood Count 10.6 K/mcL (4.3-11.1)
[2019-04-20 08:09] VITALS: BP 123/71
[2019-04-20] MEDS ORDERED: Prenatal Vit/FA 1 EACH TABLET PO SCH (09:00)
--- NOTE | 2019-04-20 10:54 | Discharge Summary ---
Date of Encounter: 04/20/19 Time of Encounter: 10:52 - Discharge Diagnosis (1) Vaginal delivery Priority: Primary Status: Acute Comments: admitted following vaginal delivery in [facility]. Patient requests to go home today Infant plan is adoption Patient to follow up with Dr. Rodriguez in 4-6 weeks Carmen has been in to see patient. Screening for suicide, drug abuse and Depo and Nexpanon offered to patient prior to discharge. Patient is unsure at this time if she wants either. Tubal consent to be signed prior to her discharge (2) AMA (advanced maternal age) multigravida 35+ Priority: Secondary Status: Acute (3) Hepatitis C Priority: Secondary Status: Acute Comments: Patient to be referred to resident clinic Qualifiers: Viral hepatitis chronicity: chronic Hepatic coma status: without hepatic coma Qualified Code(s): B18.2 - Chronic viral hepatitis C (4) Opiate abuse, continuous Priority: Secondary Status: Chronic Comments: Negative UDS on admission patient reports withdraw symptoms offered to consult hospitalist to treat withdraw and patient reports she wants to leave - Discharge Medications Prescriptions: New Ibuprofen [Motrin] 600 mg PO Q6HR PRN #30 tablet PRN Reason: Cramping Home Medications: Ibuprofen [Motrin] 600 mg PO Q6HR PRN #30 tablet 04/20/19 [Rx] Allergies/Adverse Reactions: Allergy/AdvReac Type Severity Reaction Status Date / Time No Known Allergies Allergy Verified 04/19/19 16:12 Data Procedures and tests throughout hospitalization: Laboratory Tests 04/19/19 04/19/19 04/19/19 18:18 18:18 22:00 WBC 12.0 H RBC 3.80 L Hgb 10.3 L Hct 32.0 L MCV 84.2 MCH 27.1 L MCHC 32.2 RDW 12.3 Plt Count 252 MPV 11.7 Immature Gran % 1.7 Seg Neutrophils % 76.6 Lymphocytes % 16.4 Monocytes % 4.9 Eosinophils % 0.2 Basophils % 0.2 Neutrophils # 9.2 H Lymphocytes # 2.0 Monocytes # 0.6 Eosinophils # 0.0 Basophils # 0.0 Nucleated RBCs/100 WBC 0.2 H Urine Opiates Screen Negative Ur Barbiturates Screen Negative Ur Phencyclidine Scrn Negative Ur Amphetamines Screen Negative U Benzodiazepines Scrn Negative Urine Cocaine Screen Negative U Marijuana (THC) Screen Negative Ur Drug Screen Interp See Below Hep Bs Antigen Nonreactive 04/20/19 06:57 WBC 10.6 RBC 4.14 Hgb 11.4 L Hct 35.1 L MCV 84.8 MCH 27.5 L MCHC 32.5 RDW 12.3 Plt Count 258 MPV 11.8 Immature Gran % 1.0 Seg Neutrophils % 64.0 Lymphocytes % 27.2 Monocytes % 6.9 Eosinophils % 0.6 Basophils % 0.3 Neutrophils # 6.8 Lymphocytes # 2.9 Monocytes # 0.7 Eosinophils # 0.1 Basophils # 0.0 Nucleated RBCs/100 WBC Urine Opiates Screen Ur Barbiturates Screen Ur Phencyclidine Scrn Ur Amphetamines Screen U Benzodiazepines Scrn Urine Cocaine Screen U Marijuana (THC) Screen Ur Drug Screen Interp Hep Bs Antigen Labs on day of discharge: Labs from last 24 hours 04/20/19 04/19/19 04/19/19 06:57 22:00 18:18 WBC 10.6 RBC 4.14 Hgb 11.4 L Hct 35.1 L MCV 84.8 MCH 27.5 L MCHC 32.5 RDW 12.3 Plt Count 258 MPV 11.8 Immature Gran % 1.0 Seg Neutrophils % 64.0 Lymphocytes % 27.2 Monocytes % 6.9 Eosinophils % 0.6 Basophils % 0.3 Neutrophils # 6.8 Lymphocytes # 2.9 Monocytes # 0.7 Eosinophils # 0.1 Basophils # 0.0 Nucleated RBCs/100 WBC Urine Opiates Screen Negative Ur Barbiturates Screen Negative Ur Phencyclidine Scrn Negative Ur Amphetamines Screen Negative U Benzodiazepines Scrn Negative Urine Cocaine Screen Negative U Marijuana (THC) Screen Negative Ur Drug Screen Interp See Below Hep Bs Antigen Nonreactive 04/19/19 18:18 WBC 12.0 H RBC 3.80 L Hgb 10.3 L Hct 32.0 L MCV 84.2 MCH 27.1 L MCHC 32.2 RDW 12.3 Plt Count 252 MPV 11.7 Immature Gran % 1.7 Seg Neutrophils % 76.6 Lymphocytes % 16.4 Monocytes % 4.9 Eosinophils % 0.2 Basophils % 0.2 Neutrophils # 9.2 H Lymphocytes # 2.0 Monocytes # 0.6 Eosinophils # 0.0 Basophils # 0.0 Nucleated RBCs/100 WBC 0.2 H Urine Opiates Screen Ur Barbiturates Screen Ur Phencyclidine Scrn Ur Amphetamines Screen U Benzodiazepines Scrn Urine Cocaine Screen U Marijuana (THC) Screen Ur Drug Screen Interp Hep Bs Antigen Date of admission: 04/19/19 17:28 Primary care physician: PCP NONE Consults: 04/19/19 16:32 Consult to Heel Caser [CONS] Routine Comment: Vaginal delivery, consult needed 04/19/19 19:25 Consult to Coin Machine Supervisor ([facility]) [CONS] Routine Reason For Exam: Reason for SW Consult: drug use, arrest, no custody of other children, late and limited care Discharging clinician: Joya Persaud Anticipated date of discharge: 04/20/19 - Patient Status Disposition: Home, Self-Care Condition: Fair - Discharge Instructions Follow Up With: NONE,PCP [Primary Care Provider] - Karma Rodriguez MD [Partnered Physician] - - Diet and Activity Activity: increase activity as tolerated Diet: regular diet Hospital Course Reason for admission: other (following vaginal delivery in squad) Delivery: Episiotomy: none Laceration: none complications: none Discharge diagnosis: delivery baby: female (in nursery bottle feeding, no contact with Mother) Time Attestation: Total time spent providing and/or coordinating discharge services: Time Spent: Less than 30 minutes Exam - Constitutional Vitals: Temp Pulse Resp BP Pulse Ox 98.8 F 53 16 123/71 96 04/20/19 08:08 04/20/19 08:08 04/20/19 08:08 04/20/19 08:08 04/20/19 04:15 General appearance IM: A&O X 3, pleasant, answers questions appropriately - Respiratory Respiratory exam: Present: CTAB - Cardiovascular Cardiovascular exam IM: Present: RRR - GI/Abdominal GI/Abdominal exam IM: normal bowel sounds - Uterine Tone: Firm Uterus Position: At Umbilicus, Midline - Extremities Exam Extremities exam IM: Present: full ROM, normal capillary refill, normal inspection - Neurological Exam Neurological exam: alert, oriented X3, reflexes normal
[2019-04-20] MEDS ORDERED: *HR* Oxytocin 10 UNIT/ML VIAL IM ONE (12:19)
[2019-04-23 10:13] LABS: HCV Quant Interpretation DETECTED (Not Detected); HCV Quant Log 5.69 log IU/mL
== END 2019-04-20 12:20 | disposition home or self-care (01) | DRG 831 ==
LOC: EMEROOARM 15:31 → 1NENUOBS 15:31
PROVIDERS: ADMIT Obstetrics & Gynecology; ATTEND Obstetrics & Gynecology